=== PATIENT | female | born 1990 | race Caucasian/White ===

== ENCOUNTER → 2016-07-11 | Outpatient (CLI) | payer OTHER ==
[2016-07-11 16:19] LABS: BASO # 0.1 K/mm3 (0.0-0.2); EOS # 0.1 K/mm3 (0.0-0.50); EOS % 1.7 % (0.0-3.0); LARGE UNSTAINED CELL # 0.2 K/mm3 (0.0-0.4); LARGE UNSTAINED CELL % 2.7 % (0.0-4.0); LYMPH # 2.5 K/mm3 (1.5-6.5); LYMPH % 33.7 % (24.0-44.0); MEAN CORPUSCULAR VOLUME 87.4 fl (80.0-96.0); MONO # 0.5 K/mm3 (0.0-0.8); MONO % 7.3 % (0.0-5.0); NEUTROPHILS # 3.6 K/mm3 (1.8-7.7); NEUTROPHILS % 52.6 % (36.0-66.0); PLATELET COUNT, AUTOMATED 286 k/mm3 (150-450); RED CELL DISTRIBUTION WIDTH 12.2 % (11.5-14.5); WHITE BLOOD COUNT 6.8 K/mm3 (4.0-10.0)
[2016-07-11 16:23] LABS: MEAN CORPUSCULAR HGB CONC 35.7 g/dl (32.0-36.5)
[2016-07-12 10:18] LABS: HIV SCRN NEGATIVE (NEGATIVE)
[2016-07-12 10:19] LABS: CONTROL LINE INT CTR LINE PRESENT; HIV SCRN1 NEGATIVE (NEGATIVE)
== END | disposition home or self-care (01) ==
LOC: M LAB 15:37
PROVIDERS: ATTEND Advanced Practice Midwife
DX: Z34.81 Encounter for supervision of other normal pregnancy, first trimester (principal); Z36 Encounter for antenatal screening of mother; Z3A.00 Weeks of gestation of pregnancy not specified

== ENCOUNTER → 2016-09-09 | Outpatient (CLI) | payer OTHER | LOC: M LAB 16:27 | PROVIDERS: ATTEND Obstetrics & Gynecology | DX: Z36 Encounter for antenatal screening of mother (principal); Z3A.00 Weeks of gestation of pregnancy not specified ==

== ENCOUNTER → 2016-10-29 | Outpatient (CLI) | payer OTHER ==
--- NOTE | 2016-10-30 06:32 | REP ---
Clinical: Anatomical evaluation. Comparison: None . Findings: Examination demonstrates a single live intrauterine in cephalic presentation. motion is identified by technologist. Placenta is noted posteriorly and grade zero without evidence for placenta previa or abruption. Amniotic fluid volume is normal. Cervix measures the 3.0 cm in length and appears closed. Nuchal cord cannot be excluded. Gestational age by LMP 20 weeks 5 day with TU eight 03/13/2017 . Gestational age by current measurements 21 weeks 3 days with TU 03/08/2017 . FHR equals 153 beats per minute. BPD 5.1 cm 21 weeks 3 days HC 18.8 cm 21 weeks 1 day AC 16.2 cm 21 weeks 2 days FL 3.6 cm 21 weeks 2 days HL 3.5 cm 22 weeks 1 day HC/AC ratio 1.16 Estimated weight 409 grams ( 65th percentile). Anatomical assessment demonstrates normal structures including cranium, choroid plexus, cavum, cerebellum/posterior fossa, facial features, lungs, four-chamber heart/ventricular outflow tracts, diaphragm, stomach, cord insertion/three-vessel cord, kidneys/bladder, spine, and extremities. Impression: Single live intrauterine in cephalic presentation demonstrating appropriate interval growth. Anatomical assessment is complete and normal. Nuchal cord cannot be excluded. Signed by Refugio Robert MD 10/30/2016 06:24 A
== END ==
LOC: M RAD 15:35
PROVIDERS: ATTEND Obstetrics & Gynecology
DX: Z34.81 Encounter for supervision of other normal pregnancy, first trimester (principal); Z36 Encounter for antenatal screening of mother; Z3A.20 20 weeks gestation of pregnancy

== ENCOUNTER → 2016-11-28 | Outpatient (CLI) | payer OTHER ==
[2016-11-28 13:32] LABS: MEAN CORPUSCULAR HEMOGLOBIN 33.4 pg (27.0-33.0); MEAN CORPUSCULAR HGB CONC 34.5 g/dl (32.0-36.5); RED CELL DISTRIBUTION WIDTH 12.6 % (11.5-14.5); WHITE BLOOD COUNT 12.6 K/mm3 (4.0-10.0)
== END ==
LOC: M SMT 09:30
PROVIDERS: ATTEND Obstetrics & Gynecology
DX: Z34.82 Encounter for supervision of other normal pregnancy, second trimester (principal); Z36 Encounter for antenatal screening of mother; Z3A.00 Weeks of gestation of pregnancy not specified

== ENCOUNTER → 2017-02-17 | Outpatient (REF) | payer OTHER ==
[~2017-02-17] MED LIST: ACET50TA PO; COLA100C5 PO; IBUP-1114 PO; LAMI1TAB7 PO; PRENTAB9 PO; ZOLO100T PO
== END ==
LOC: M LAB REF 12:58
PROVIDERS: ATTEND Obstetrics & Gynecology
DX: Z34.83 Encounter for supervision of other normal pregnancy, third trimester (principal); Z36 Encounter for antenatal screening of mother; Z3A.00 Weeks of gestation of pregnancy not specified

== ENCOUNTER 2017-02-27 21:41 | Outpatient (CLI) | payer OTHER ==
[~2017-02-27] VITALS: Ht 167.6 cm; Wt 91.0 kg
[2017-02-27 21:54] VITALS: BP 132/91
[2017-02-27 22:09] VITALS: BP 126/81
[2017-02-27] MEDS ORDERED: COLA100C5 PO (22:14)
[2017-02-27] MEDS ORDERED: PRENTAB9 PO (22:14)
[2017-02-27] MEDS ORDERED: LAMI1TAB7 PO (22:14)
== END 2017-02-28 00:38 | disposition home or self-care (01) ==
LOC: M LDO 21:41
PROVIDERS: ATTEND Obstetrics & Gynecology
DX: O47.1 False labor at or after 37 completed weeks of gestation (principal); O36.8130 Decreased fetal movements, third trimester, not applicable or unspecified; Z3A.38 38 weeks gestation of pregnancy; Z88.0 Allergy status to penicillin

== ENCOUNTER 2017-03-08 08:48 | Inpatient (IN) | payer OTHER ==
[~2017-03-08] VITALS: Ht 167.6 cm; Wt 94.0 kg
[2017-03-08] VITALS (20 sets, daily range): BP systolic 110–148; BP diastolic 58–95
[~2017-03-08 08:48] MED LIST changes: -ACET50TA PO; -IBUP-1114 PO; -ZOLO100T PO
[2017-03-08] MEDS ORDERED: ZOLO100T PO (09:00)
[2017-03-08 10:25] LABS: MEAN CORPUSCULAR HEMOGLOBIN 32.9 pg (27.0-33.0); MEAN CORPUSCULAR HGB CONC 36.2 g/dl (32.0-36.5); MEAN CORPUSCULAR VOLUME 90.9 fl (80.0-96.0); RED CELL DISTRIBUTION WIDTH 12.9 % (11.5-14.5); WHITE BLOOD COUNT 10.2 K/mm3 (4.0-10.0)
[2017-03-08] MEDS ORDERED: OXYTOCIN 30 UNITS IN 0.9% NaCl 500ML IV BAG (J2590) As Ordered ONE (10:46)
[2017-03-08] MEDS ORDERED: LACTATED RINGER'S 1000 ML IV STA (10:48)
[2017-03-08] MEDS ORDERED: LR 1,000 ML IV SCH (11:00)
[2017-03-08] MEDS ORDERED: OXYTOCIN DRIP 30 UNITS in APPROPRIATE DILUENT 1 EA IV SCH ×5 (11:15→23:15)
[2017-03-08] MEDS ORDERED: FENTANYL 2MCG/ML ROPIVACAINE 0.2% IN 0.9% NACL 200ML IVBAG As Ordered ONE (15:20)
[2017-03-08] MEDS ORDERED: EPIDURAL COMMENT XX SCH (16:15)
[2017-03-08] MEDS ORDERED: ONDANSETRON 4MG/2ML VIAL (J2405) IV PRN ×2 (16:15→23:15)
[2017-03-08] MEDS ORDERED: REFRIGERATOR IV KEYS XX PRN (16:15)
[2017-03-08] MEDS ORDERED: LACTATED RINGER'S 1000 ML IV PRN (16:15)
[2017-03-08] MEDS ORDERED: EPIDURAL/PCA KEYS XX PRN (16:15)
[2017-03-08] MEDS ORDERED: ePHEDrine SULFATE 25 MG/5 ML(5MG/ML) SYRINGE IV PRN (16:15)
[2017-03-08] MEDS ORDERED: NALOXONE INJ 0.4 MG/1 ML VIAL (J2310) IV PRN (16:15)
[2017-03-08] MEDS ORDERED: FENTANYL/ROPIVACAINE/NACL BAG 200 ML EPIDURAL SCH (16:15)
[2017-03-08] MEDS ORDERED: diphenhydrAMINE INJ 50MG/ML VIAL (J1200) IV PRN (16:15)
[2017-03-08] MEDS ORDERED: MEASLES,MUMPS,RUBELLA VACCINE INJ (MMR-II) (90707) SC SCH (23:15)
[2017-03-08] MEDS ORDERED: DIBUCAINE 1% OINTMENT 30GM TOP PRN (23:15)
[2017-03-08] MEDS ORDERED: ACETAMINOPHEN 500 MG TAB PO PRN (23:15)
[2017-03-08] MEDS ORDERED: PROMETHAZINE 25 MG TAB PO PRN (23:15)
[2017-03-08] MEDS ORDERED: RHOGAM 300 MCG (1500 IU) INJ (J2790) IM SCH (23:15)
[2017-03-08] MEDS ORDERED: DOCUSATE SODIUM 100 MG CAP PO PRN (23:15)
[2017-03-09 01:06] VITALS: BP 165/89
[2017-03-09 01:55] VITALS: BP 140/86
[2017-03-09 05:55] VITALS: BP 131/69
[2017-03-09] MEDS: IBUPROFEN 800 MG TAB PO PRN (08:00)
[2017-03-09] MEDS: PRENATAL VITAMINS CHEWABLE TABLET PO SCH (08:00)
[2017-03-09 17:40] VITALS: BP 137/84
[2017-03-10 05:58] VITALS: BP 122/77
[2017-03-10] MEDS ORDERED: INFLUENZA QUADRIVALENT PF VACCINE 0.5ML SYRINGE (90686) IM ONE (09:00)
[2017-03-10] MEDS: PRENATAL VITAMINS CHEWABLE TABLET PO SCH (09:13)
[2017-03-10] MEDS ORDERED: IBUP-1114 PO (10:03)
[2017-03-10] MEDS ORDERED: ACET50TA PO (10:03)
[2017-03-10] MEDS: IBUPROFEN 800 MG TAB PO PRN (10:30)
== END 2017-03-10 11:00 | disposition home or self-care (01) | DRG 775 ==
LOC: M LDO 08:48 → M LDI 09:40 → M OBS 03-09 00:50
PROVIDERS: ADMIT Obstetrics & Gynecology; ATTEND Obstetrics & Gynecology
PROC: 10E0XZZ Delivery of Products of Conception, External Approach (ICD-10-PCS; principal; 2017-03-08)
PROC: 0HQ9XZZ Repair Perineum Skin, External Approach (ICD-10-PCS; 2017-03-08)
DX: O42.02 Full-term premature rupture of membranes, onset of labor within 24 hours of rupture (principal); Z3A.39 39 weeks gestation of pregnancy; O70.0 First degree perineal laceration during delivery; Z37.0 Single live birth

== ENCOUNTER → 2017-07-15 | Outpatient (REF) | payer OTHER | LOC: M LAB REF 21:32 | DX: J02.9 Acute pharyngitis, unspecified (principal) ==